=== PATIENT | female | born 1975 | race Hispanic/Latino ===

== ENCOUNTER 2018-04-22 17:00 | Emergency (ER) | payer SELFPAY ==
[~2018-04-22] VITALS: Ht 162.6 cm; Wt 71.0 kg
[2018-04-22] MEDS ORDERED: MEDROXYPROGESTER5 MG IM (17:17)
[2018-04-22 17:59] LABS: HEMATOCRIT 35.4 % (37.0-47.0); HEMOGLOBIN 11.6 g/dl (12.0-16.0); IMMATURE GRANULOCYTES 0.2 % (0.0-5.0); MEAN CELL VOLUME 87.2 fL CALC (80.0-100.0); MEAN CORPUSCULAR HGB 28.6 pG CALC (26.0-32.0); MEAN CORPUSCULAR HGB CONC 32.8 g/L CALC (32.0-36.0); NEUT# 5.45 thou/uL (2.00-7.15); RED BLOOD COUNT 4.06 mill/uL (4.20-5.60); RED CELL DISTRI WIDTH 12.8 % (11.5-15.5); URINE BILIRUBIN - DIPSTICK NEGATIVE (NEGATIVE); URINE BLOOD DIPSTICK LARGE (NEGATIVE); URINE GLUCOSE - DIPSTICK NEGATIVE (NEGATIVE); URINE KETONE TRACE mg/dL (NEGATIVE); URINE LEUK ESTERASE NEGATIVE (NEGATIVE); URINE PROTEIN - DIPSTICK >=300 mg/dL (NEG-TRACE); URINE SPECIFIC GRAVITY >=1.030
[2018-04-22 18:03] LABS: URINE COLOR BLOODY; URINE NITRITE - DIPSTICK POSITIVE (Negative); URINE RBC TNTC RBC/hpf (0-5); URINE SQUAMOUS EPITHELIAL CELL FEW EPI/hpf (0-FEW)
[2018-04-22 18:04] LABS: URINE BACTERIA MANY hpf
[2018-04-22 18:10] LABS: ALBUMIN 4.3 g/dL (3.2-5.0); ALKALINE PHOSPHATASE 97 u/l (38-126); ANION GAP 16 (6-22 (CALC)); BILIRUBIN, TOTAL 0.6 mg/dL (0.0-1.4); BUN 15 mg/dL (7-17); BUN/CREATININE RATIO 28 (12-20 (CALC)); CARBON DIOXIDE 20 mmol/l (22-30); CHLORIDE 107 mmol/l (95-108); CREATININE 0.6 mg/dL (0.5-1.0); GFR > 60 ML/MIN (>=60 (CALC)); GFR FOR AFR.AMER. > 60 ML/MIN (>=60 (CALC)); POTASSIUM 3.8 mmol/l (3.5-5.1); SGOT/AST 23 u/l (14-36); SODIUM 139 mmol/l (137-146); TOTAL PROTEIN 7.3 g/dL (6.3-8.2)
[2018-04-22 19:03] VITALS: BP 122/79
== END 2018-04-22 19:09 | disposition home or self-care (01) | DRG 761 ==
LOC: ED 17:00
DX: N93.8 Other specified abnormal uterine and vaginal bleeding (principal)

== ENCOUNTER 2020-01-04 05:17 | Emergency (ER) | payer SELFPAY ==
[~2020-01-04] VITALS: Ht 160 cm; Wt 75.0 kg
[~2020-01-04 05:17] MED LIST: MEDROXYPROGESTER5 MG IM
[2020-01-04] MEDS ORDERED: TRAMADOL HCL50 MG PO (05:42)
[2020-01-04] MEDS ORDERED: IBUPROFEN600 MG PO (05:43)
[2020-01-04 06:04] LABS: URINE BILIRUBIN - DIPSTICK NEGATIVE (NEGATIVE); URINE BLOOD DIPSTICK NEGATIVE (NEGATIVE); URINE COLOR YELLOW; URINE GLUCOSE - DIPSTICK NEGATIVE (NEGATIVE); URINE KETONE NEGATIVE (NEGATIVE); URINE LEUK ESTERASE TRACE (NEGATIVE); URINE NITRITE - DIPSTICK NEGATIVE (Negative); URINE PROTEIN - DIPSTICK NEGATIVE (NEG-TRACE); URINE UROBILINOGEN - DIPSTICK 0.2 E.U./dL (0.2)
[2020-01-04 06:05] LABS: HEMATOCRIT 45.2 % (37.0-47.0); HEMOGLOBIN 14.9 g/dl (12.0-16.0); IMMATURE GRANULOCYTES 0.2 % (0.0-5.0); MEAN CELL VOLUME 87.1 fL CALC (80.0-100.0); MEAN CORPUSCULAR HGB 28.7 pG CALC (26.0-32.0); NEUT# 5.07 thou/uL (2.00-7.15); RED BLOOD COUNT 5.19 mill/uL (4.20-5.60); RED CELL DISTRI WIDTH 13.3 % (11.5-15.5)
[2020-01-04 06:19] LABS: ALBUMIN 4.2 g/dL (3.2-5.0); ALKALINE PHOSPHATASE 112 u/l (38-126); AMYLASE 87 u/l (30-110); ANION GAP 12 (6-22 (CALC)); BILIRUBIN, TOTAL 0.5 mg/dL (0.0-1.4); BUN 12 mg/dL (7-17); BUN/CREATININE RATIO 20 (12-20 (CALC)); CARBON DIOXIDE 22 mmol/l (22-30); CHLORIDE 109 mmol/l (95-108); CREATININE 0.6 mg/dL (0.5-1.0); GFR > 60 ML/MIN (>=60 (CALC)); GFR FOR AFR.AMER. > 60 ML/MIN (>=60 (CALC)); LIPASE 114 u/l (23-300); POTASSIUM 4.3 mmol/l (3.5-5.1); SGOT/AST 39 u/l (14-36); SODIUM 139 mmol/l (137-146); TOTAL PROTEIN 7.3 g/dL (6.3-8.2)
[2020-01-04] MEDS ORDERED: NAPROXEN DR500 MG PO (07:35)
[2020-01-04 07:54] VITALS: BP 127/69
== END 2020-01-04 07:54 | disposition home or self-care (01) | DRG 392 ==
LOC: ED 05:17
PROVIDERS: Emergency Medicine
DX: R10.31 Right lower quadrant pain (principal); R10.32 Left lower quadrant pain; R11.0 Nausea; R93.89 Abnormal findings on diagnostic imaging of other specified body structures
CPT/HCPCS: Q9967

== ENCOUNTER 2020-03-31 15:08 | Emergency (ER) | payer SELFPAY ==
[~2020-03-31 15:08] MED LIST changes: +IBUPROFEN600 MG PO; +NAPROXEN DR500 MG PO; +TRAMADOL HCL50 MG PO
== END 2020-03-31 16:21 | disposition left against medical advice (07) | DRG 951 ==
LOC: ED 15:08 → LWOBS 16:21
PROVIDERS: Family Medicine
DX: Z53.21 Procedure and treatment not carried out due to patient leaving prior to being seen by health care provider (principal)

== ENCOUNTER 2021-06-28 09:45 | Day surgery (SDC) | payer OTHER ==
[~2021-06-28] VITALS: Ht 160 cm; Wt 80.3 kg
[~2021-06-28 09:45] MED LIST changes: +ESTRADIOL1 MG PO; +VITAMIN D35000 UNI1 PO
[2021-06-28 11:44] VITALS: BP 94/63
== END 2021-06-28 11:45 | disposition home or self-care (01) | DRG 951 ==
LOC: ENDO 09:45
PROVIDERS: ATTEND Surgery
PROC: 0DJD8ZZ Inspection of Lower Intestinal Tract, Via Natural or Artificial Opening Endoscopic (ICD-10-PCS; principal; 2021-06-28)
DX: Z12.11 Encounter for screening for malignant neoplasm of colon (principal)

== ENCOUNTER 2021-12-17 21:26 | Emergency (ER) | payer OTHER ==
[~2021-12-17] VITALS: Ht 157.5 cm; Wt 77.0 kg
[2021-12-17 22:52] VITALS: BP 111/72
[2021-12-18] MEDS ORDERED: CYCLOBENZAPRINE10 MG PO (01:06)
[2021-12-18] MEDS ORDERED: NAPROXEN500 MG PO (01:06)
[2021-12-18 01:09] VITALS: BP 111/72
== END 2021-12-18 01:28 | disposition home or self-care (01) | DRG 554 ==
LOC: ED 21:26
DX: M19.012 Primary osteoarthritis, left shoulder (principal); M47.812 Spondylosis without myelopathy or radiculopathy, cervical region